=== PATIENT | female | born 1970 | race African-American/Black ===

== ENCOUNTER 2018-03-20 07:30 | Inpatient (IN) | payer OTHER ==
[~2018-03-20] VITALS: Ht 172.7 cm; Wt 122.0 kg
[2018-03-20] VITALS (12 sets, daily range): BP systolic 116–161; BP diastolic 54–90
[~2018-03-20 07:30] MED LIST: ACYCLOVIR400 MG ORAL; GABAPENTIN100 MG ORAL; OMEPRAZOLE40 M1 ORAL; ONE DAILY FOR1 EACH ORAL; POLY-IRON150 MG PO; VITAMIN B12-FO1 EAC1 PO; VITAMIN C500 M1 ORAL; VITAMIN D22000 UNIT PO; VITAMIN D400 INTLU ORAL
[2018-03-20] MEDS ORDERED: LR 1000ml 1,000 ML IVLG SCH (09:20)
--- NOTE | 2018-03-20 09:23 | Anethesia Preoperative Eval ---
Anesthesia Pre-op PMH/ROS General Date of Evaluation: Mar 20, 2018 Time of Evaluation: 10:04 Anesthesiologist: Yanci ASA Score: ASA 3 Mallampati Score Class I : Soft palate, uvula, fauces, pillars visible Class II: Soft palate, uvula, fauces visible Class III: Soft palate, base of uvula visible Class IV: Only hard plate visible Mallampati Classification: Class II Surgeon: Elías Diagnosis: Neck Pain Surgical Procedure: C4-5, C5-6 ADR Anesthesia History: none Family History: no anesthesia problems Allergies: Coded Allergies: SULFA (SULFONAMIDE ANTIBIOTICS) (Verified Allergy, Unknown, 03/19/18) Medications: see eMAR Past Medical History Cardiovascular: Reports: HTN Gastrointestinal/Genitourinary: Reports: GERD Neurologic/Psychiatric: Reports: depression/anxiety Other: obesity - Morbid BMI 44 Anesthesia Pre-op Phys. Exam Physician Exam Last Vital Signs Date Time Temp Pulse Resp B/P (MAP) Pulse Ox O2 Delivery O2 Flow Rate FiO2 03/20/18 09:13 98.7 70 18 149/90 (109) 98 98.7 Constitutional: NAD Neurologic: CN 2-12 intact Cardiovascular: RRR Respiratory: CTA Gastrointestinal: S/NT/ND Airway Exam Mallampati Score: Class II MO: full ROM: limited Teeth: intact Anesthesia Pre-op A/P Labs Urine Test Test 03/20/18 08:30 Urine HCG, Qualitative Negative (NEGATIVE) Risk Assessment & Plan Assessment: ASA 3 Plan: GA, SED, GlideScope Go Status Change Before Surgery: No Pre-Antibiotics Dru Grams Ancef IV Given Within 1 Hr of Incision: Yes Time Given: 10:21 Antwan Pete MD Mar 20, 2018 09:23
[2018-03-20] MEDS ORDERED: Meperidine 50mg/ml Inj(FOR RIGORS ONLY) IVP PRN (09:30)
[2018-03-20] MEDS ORDERED: HYDROcodone/Acetamin 7.5/325 tab ORAL PRN (09:30)
[2018-03-20] MEDS ORDERED: Midazolam 2mg/2ml Inj IVP PRN (09:30)
[2018-03-20] MEDS ORDERED: DiphenhydrAMINE 50mg/ml Inj IVP PRN (09:30)
[2018-03-20] MEDS ORDERED: oxyCODONE HCL/Acetaminophen 5/325mg ORAL PRN (09:30)
[2018-03-20] MEDS ORDERED: Acetaminophen (Non formulary) 100 ML IV ONE (09:30)
[2018-03-20] MEDS ORDERED: Labetalol 5mg/ml 20ml vial IV PRN (09:30)
[2018-03-20] MEDS ORDERED: LORazepam Inj 2mg/ml 1ml IV PRN (09:30)
[2018-03-20] MEDS ORDERED: fentaNYL 100 mcg/2 mL IV PRN (09:30)
[2018-03-20] MEDS ORDERED: Metoclopramide 10mg/2ml Inj IVP PRN (09:30)
[2018-03-20] MEDS ORDERED: Atropine Sulfate 0.4mg/ml inj IVP PRN (09:30)
[2018-03-20] MEDS ORDERED: Hydromorphone 0.5mg/0.5ml inj IVP PRN (09:30)
[2018-03-20] MEDS ORDERED: Norco 5mg/325mg tab ORAL PRN ×2 (09:30→16:00)
[2018-03-20] MEDS ORDERED: Thrombin 5000 units spray kit TOPIC ONE (09:55)
[2018-03-20] MEDS ORDERED: Thrombin 5000 units TOPIC ONE ×2 (09:56→11:56)
[2018-03-20] MEDS ORDERED: Gelfoam Absorbable 1gm powder pkt TOPIC ONE (09:56)
[2018-03-20] MEDS ORDERED: Gelfoam Size TOPIC ONE (09:56)
[2018-03-20] MEDS ORDERED: Bacitracin 50000 Units Vial ONE (09:56)
[2018-03-20] MEDS ORDERED: Sterile Water Irrig 1000ml IRRIG ONE (10:00)
[2018-03-20] MEDS ORDERED: Neostigmine 1mg/ml 10ml Inj ONE (10:00)
[2018-03-20] MEDS ORDERED: Propofol 1,000mg/ 100ml btl IV ONE (10:00)
[2018-03-20] MEDS ORDERED: LR 1000ml ONE (10:00)
[2018-03-20] MEDS ORDERED: NS Irrig 1000ml ONE (10:00)
[2018-03-20] MEDS ORDERED: Zemuron 50mg/5ml Inj IV ONE ×2 (10:00→10:01)
--- NOTE | 2018-03-20 10:00 | Pre-Procedure Note/Attestation ---
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 Attestation I attest that I discussed the nature of the procedure; its benefits; risks and complications; and alternatives (and the risks and benefits of such alternatives ), prior to the procedure, with the patient (or the patient's legal auto claim representative). I attest that, if there was a reasonable possibility of needing a blood transfusion, the patient (or the patient's legal auto claim representative) was given the [facility] standardized written summary, pursuant to the Filippo Mary Lou Blood Safety Act ([place] Health and Safety Code # 1645, as amended). I attest that I re-evaluated the patient just prior to the surgery and that there has been no change in the patient's H&P, except as documented below:no changes Jorge Mckinley MD Mar 20, 2018 10:00
--- NOTE | 2018-03-20 10:02 | Brief Operative Note ---
Immediate Post Operative Note Operative Note Pre-op Diagnosis: stenosis and aggravation C4/5 and C5/6. Procedure: ADR C4/5 and C5/6 Post-op Diagnosis: same Post-op Diagnosis: same as pre-op Findings: consistent w/pre-op dx studies Surgeon: levy Runstitching Machine Operator: randell Anesthesiologist: vladimir Anesthesia: general Specimen: yes Condition: stable Fluids: per anesthesia Estimated Blood Loss: volume Implant(s) used?: Yes Jorge Mckinley MD Mar 20, 2018 10:02
[2018-03-20] MEDS ORDERED: Lidocaine 1% MPF 10mg/ml 5ml ONE (10:07)
[2018-03-20] MEDS ORDERED: Sodium Chloride 10ml vial INJ ONE (10:07)
[2018-03-20] MEDS ORDERED: Dexamethasone 4mg/ml vial ONE (10:11)
[2018-03-20] MEDS ORDERED: fentaNYL 100 mcg/2 mL IV ONE ×3 (10:15→12:42)
--- NOTE | 2018-03-20 11:27 | Immediate Post-Op Evaluation ---
Immediate Post-Op Evalulation Immediate Post-Op Evalulation Procedure: C4-5, C5-6 ADR Date of Evaluation: Mar 20, 2018 Time of Evaluation: 14:15 IV Fluids: 1400 LR Blood Products: 0 Estimated Blood Loss: 50 Urinary Output: 450 Blood Pressure Systolic: 116 Blood Pressure Diastolic: 75 Pulse Rate: 77 Respiratory Rate: 16 O2 Sat by Pulse Oximetry: 100 Pain Score (1-10): 3 Nausea: No Vomiting: No Complications 0 Patient Status: awake, reacts, patent, extubated, none Hydration Status: adequate Dru Grams Ancef IV Given Within 1 Hr of Incision: Yes Time Given: 10:21 Antwan Pete MD Mar 20, 2018 11:27
[2018-03-20] MEDS ORDERED: Lidocaine 1% Plain 30 ml INJ ONE (11:53)
[2018-03-20] MEDS ORDERED: NS Irrig 1000ml IRRIG ONE (11:55)
[2018-03-20] MEDS ORDERED: Glycopyrrolate 0.2mg/ml 1ml Vial ONE (13:38)
[2018-03-20] MEDS: Hydromorphone 0.5mg/0.5ml inj IVP PRN ×2 (17:10→21:16)
--- NOTE | 2018-03-20 17:14 | General Progress Note ---
Assessment/Plan Assessment/Plan stenosis and aggravation C4/5 and C5/6. ADR C4/5 and C5/6 PLAN 1. incentive spirometry 2. SCD 3. PT evaluation and therapy 4. Hydration 5. Pain management 6. discharge once stable with outpatient follow up Subjective Allergies: Coded Allergies: SULFA (SULFONAMIDE ANTIBIOTICS) (Verified Allergy, Unknown, 03/19/18) Subjective post op Objective Last 24 Hour Vital Signs Date Time Temp Pulse Resp B/P (MAP) Pulse Ox O2 Delivery O2 Flow Rate FiO2 03/20/18 16:00 98.0 55 20 127/70 (89) 100 98.0 03/20/18 15:30 98.1 55 20 126/65 (85) 98 98.1 03/20/18 15:00 97.8 51 17 140/58 100 Nasal Cannula 3 97.8 03/20/18 14:50 52 16 132/54 99 Nasal Cannula 3 03/20/18 14:45 54 18 128/56 99 Nasal Cannula 3 03/20/18 14:35 59 22 129/63 99 Nasal Cannula 3 03/20/18 14:25 65 17 125/66 99 Nasal Cannula 3 03/20/18 14:15 58 17 128/67 100 Simple Mask 6 03/20/18 14:10 82 18 121/75 100 Simple Mask 6 03/20/18 14:05 77 16 100 03/20/18 14:04 98.6 82 12 116/75 99 Simple Mask 6 98.6 03/20/18 09:28 Room Air 03/20/18 09:13 98.7 70 18 149/90 (109) 98 98.7 Laboratory Tests 03/20/18 08:30: Urine HCG, Qualitative Negative Height (Feet): 5 Height (Inches): 8.00 Weight (Pounds): 269 Objective WDWN NAD clear breath sounds bilaterally without rhonchi or wheeze [id number] without MRG NABS nontender no HSM no CCE nonfocal Demarcus Aguilar MD Mar 20, 2018 17:14
[2018-03-20] MEDS: Docusate 100mg cap ORAL SCH (18:00)
[2018-03-20] MEDS: ceFAZolin 1gm/50ml Premix 50 ML IV SCH (18:21)
[2018-03-20] MEDS: D5 1/2NS w/KCl 20mEq 1,000 ML IV SCH (18:21)
[2018-03-20] MEDS ORDERED: ceFAZolin 1gm/50ml Premix 50 ML IV SCH (20:00)
[2018-03-21] VITALS: BP 154/80
[2018-03-21] MEDS: D5 1/2NS w/KCl 20mEq 1,000 ML IV SCH ×3 (01:06→17:54)
[2018-03-21] MEDS: ceFAZolin 1gm/50ml Premix 50 ML IV SCH ×3 (01:07→17:55)
[2018-03-21 04:00] VITALS: BP 158/81
[2018-03-21] MEDS: Hydromorphone 0.5mg/0.5ml inj IVP PRN ×4 (05:26→20:35)
[2018-03-21 07:16] LABS: ANION GAP 7 mmol/L (5-15); BLOOD UREA NITROGEN 11 mg/dL (7-18); CALCIUM 8.3 MG/DL (8.5-10.1); CARBON DIOXIDE 26 MMOL/L (21-32); CHLORIDE 104 MMOL/L (98-107); POTASSIUM 4.1 MMOL/L (3.5-5.1); SODIUM 137 MMOL/L (136-145)
[2018-03-21 08:00] VITALS: BP 143/71
--- NOTE | 2018-03-21 08:28 | General Progress Note ---
Assessment/Plan Assessment/Plan stenosis and aggravation C4/5 and C5/6. ADR C4/5 and C5/6 PLAN 1. incentive spirometry 2. SCD 3. PT evaluation and therapy 4. Hydration 5. Pain management 6. discharge in am if stable Subjective Allergies: Coded Allergies: SULFA (SULFONAMIDE ANTIBIOTICS) (Verified Allergy, Unknown, 03/19/18) Subjective post op some pain Objective Last 24 Hour Vital Signs Date Time Temp Pulse Resp B/P (MAP) Pulse Ox O2 Delivery O2 Flow Rate FiO2 03/21/18 08:00 98.1 62 20 143/71 (95) 98 98.1 03/21/18 04:00 98.0 63 18 158/81 (106) 95 98.0 03/21/18 00:00 98.1 61 17 154/80 (104) 96 98.1 03/20/18 21:00 Room Air 03/20/18 20:00 98.1 59 18 155/82 (106) 94 98.1 03/20/18 16:00 98.0 55 20 127/70 (89) 100 98.0 03/20/18 15:30 98.1 55 20 126/65 (85) 98 98.1 03/20/18 15:00 97.8 51 17 140/58 100 Nasal Cannula 3 97.8 03/20/18 14:50 52 16 132/54 99 Nasal Cannula 3 03/20/18 14:45 54 18 128/56 99 Nasal Cannula 3 03/20/18 14:35 59 22 129/63 99 Nasal Cannula 3 03/20/18 14:25 65 17 125/66 99 Nasal Cannula 3 03/20/18 14:15 58 17 128/67 100 Simple Mask 6 03/20/18 14:10 82 18 121/75 100 Simple Mask 6 03/20/18 14:05 77 16 100 03/20/18 14:04 98.6 82 12 116/75 99 Simple Mask 6 98.6 03/20/18 09:28 Room Air 03/20/18 09:13 98.7 70 18 149/90 (109) 98 98.7 Intake and Output 03/20/18 03/21/18 19:00 07:00 Intake Total 2285 ml 1355 ml Output Total 500 ml Balance 1785 ml 1355 ml Intake Oral 285 ml 480 ml IV Total 2000 ml 875 ml Output Urine Total 450 ml Estimated Blood Loss 50 ml # Voids 1 2 Laboratory Tests 03/20/18 08:30: Urine HCG, Qualitative Negative 03/21/18 05:59: Sodium Level 137, Potassium Level 4.1, Chloride Level 104, Carbon Dioxide Level 26, Anion Gap 7, Blood Urea Nitrogen 11, Creatinine 1.0, Estimat Glomerular Filtration Rate > 60, Glucose Level 137H, Calcium Level 8.3L Height (Feet): 5 Height (Inches): 8.00 Weight (Pounds): 269 Objective WDWN NAD clear breath sounds bilaterally without rhonchi or wheeze [id number] without MRG NABS nontender no HSM no CCE nonfocal Demarcus Aguilar MD Mar 21, 2018 08:28
[2018-03-21] MEDS: Docusate 100mg cap ORAL SCH ×2 (09:23→17:54)
[2018-03-21 12:00] VITALS: BP 142/73
--- NOTE | 2018-03-21 12:29 | 48 Hour Post Anesthesia Eval ---
Post Anesthesia Evaluation Procedure: C4-5, C5-6 ADR Date of Evaluation: Mar 21, 2018 Time of Evaluation: 12:28 Blood Pressure Systolic: 148 0: 76 Pulse Rate: 68 Respiratory Rate: 20 Temperature (Fahrenheit): 97.6 O2 Sat by Pulse Oximetry: 98 Airway: patent Nausea: No Vomiting: No Pain Intensity: 3 Hydration Status: adequate Cardiopulmonary Status: stable Mental Status/LOC: patient returned to baseline Follow-up Care/Observations: n/a Post-Anesthesia Complications: none Follow-up care needed: N/A Cr Castañeda MD Mar 21, 2018 12:29
[2018-03-21 16:00] VITALS: BP 130/72
[2018-03-21 20:00] VITALS: BP 149/80
[2018-03-22] VITALS: BP 169/82
[2018-03-22] MEDS: Hydromorphone 0.5mg/0.5ml inj IVP PRN ×3 (00:37→09:33)
[2018-03-22] MEDS: D5 1/2NS w/KCl 20mEq 1,000 ML IV SCH ×2 (00:38→08:59)
[2018-03-22] MEDS: ceFAZolin 1gm/50ml Premix 50 ML IV SCH ×2 (02:00→11:01)
[2018-03-22 04:00] VITALS: BP 143/79
[2018-03-22 08:20] VITALS: BP 134/79
[2018-03-22] MEDS: Docusate 100mg cap ORAL SCH (08:58)
--- NOTE | 2018-03-22 10:08 | General Progress Note ---
Assessment/Plan Assessment/Plan stenosis and aggravation C4/5 and C5/6. ADR C4/5 and C5/6 PLAN 1. incentive spirometry 2. SCD 3. PT evaluation and therapy 4. Hydration 5. Pain management 6. discharge today Subjective Allergies: Coded Allergies: SULFA (SULFONAMIDE ANTIBIOTICS) (Verified Allergy, Unknown, 03/19/18) Subjective post op some pain but improved eating Objective Last 24 Hour Vital Signs Date Time Temp Pulse Resp B/P (MAP) Pulse Ox O2 Delivery O2 Flow Rate FiO2 03/22/18 08:20 98.7 71 18 134/79 (97) 97 98.7 03/22/18 04:00 99.1 64 16 143/79 (100) 92 99.1 03/22/18 00:00 100.4 75 15 169/82 (111) 100.4 03/21/18 20:00 98.8 94 18 149/80 (103) 98.8 03/21/18 20:00 Room Air 03/21/18 16:00 99.0 70 19 130/72 (91) 96 99.0 03/21/18 12:29 207.7 68 20 98 03/21/18 12:00 98.5 60 21 142/73 (96) 97 98.5 Intake and Output 03/21/18 03/22/18 19:00 07:00 Intake Total 365 ml 2147.5 ml Balance 365 ml 2147.5 ml Intake Oral 240 ml 480 ml IV Total 125 ml 1667.5 ml # Voids 1 2 Height (Feet): 5 Height (Inches): 8.00 Weight (Pounds): 269 Objective WDWN NAD clear breath sounds bilaterally without rhonchi or wheeze [id number] without MRG NABS nontender no HSM no CCE nonfocal Demarcus Aguilar MD Mar 22, 2018 10:08
[2018-03-22 12:00] VITALS: BP 142/72
[2018-03-22] MEDS ORDERED: NORCO 5-325 TA1 EACH ORAL (13:56)
--- NOTE | 2018-03-24 07:58 | Discharge Summary ---
Discharge Summary Hospital Course Date of Admission Mar 20, 2018 at 08:14 Date of Discharge Mar 22, 2018 at 15:40 Admitting Diagnosis stenosis and aggravation C4-5 and C5-6. Reason for Hospitalization: elective surgery HPI Keila Willis is a 47 year old female who was admitted on Mar 20, 2018 at 08: 14 for s tenosis and aggravation C4-5 and C5-6. Patient was admitted for elective surgery. Consultations dr Aguilar Procedures s/p ENEDINA C4-5, C5-6 on 03/20/[address] Mckinley [facility] Course s/p surgery course of recovery uneventful initially IV fluids s/p perioperative abx neurovascular status intact pain management addressed , pain controlled incision clean, dry and intact ambulated freely with physical therapist ; spine and fall precautions maintained tolerated soft diet Chloraseptic [place] as needed for comfort voided freely bowel regimen instituted DVT prophylaxis with SCD incentive spirometry encouraged while in the bed cervical collar on discharge instructions provided importance of wearing cervical collar as tolerated by surgeon was stressed follow up with surgeon as outpatient as directed by surgeon FINAL DIAGNOSES stenosis and aggravation C4/5 and C5/6. s/p ADR C4-5 and C5-6 Discharge Medications Continued Medications: Ascorbic Acid* (Vitamin C*) 500 Mg Tablet 500 MG ORAL DAILY, #30 TAB 0 Refills (This prescription has been renewed) Gabapentin* (Gabapentin*) 100 Mg Capsule 100 MG ORAL BEDTIME, CAP (This prescription has been renewed) Hydrocodone Bit/Acetaminophen 5-325* ([place] 5-325*) 1 Each Tablet 1 TAB ORAL Q4H PRN for For Pain, TAB 0 Refills (This prescription has been renewed) Discharge Condition Upon Discharge: stable Discharge Disposition Patient was discharged to Home () Discharge Instructions Discharge Instructions Special Instructions I have been assigned to complete a D/C Summary on this account. I was not involved in the patient management Rosaline Ortega NP Mar 24, 2018 07:58
--- NOTE | 2018-03-25 06:15 | Operative Note - Dictated ---
DATE OF OPERATION: 03/20/2018 PREOPERATIVE DIAGNOSES: 1. 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 2. Traumatic spondyloarthropathy. POSTOPERATIVE DIAGNOSES: 1. 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 2. Traumatic spondyloarthropathy. PROCEDURE PERFORMED: 1. Anterior cervical diskectomy, C4-C5 and C5-C6. 2. Artificial disk replacement, C4-C5 and C5-C6. 3. Use of intraoperative microscope. 4. Interpretation of intraoperative SSEP transcutaneous motor MEPs and EMGs. 5. Modifier 22 applied, as the patient has significantly high BMI. SURGEON: Jorge Mckinley M.D. DOCUMENTATION BILLING CLERK: Tiburcio Saravia ANESTHESIOLOGIST: Antwan Pete M.D. ANESTHESIA: General endotracheal intubation. INTRAOPERATIVE FINDINGS: SSEPs at baseline in the upper and lower extremities were repeating and reproducible. Closing upper extremity SSEP amplitude increased by 20% and lower extremities remain closing. Baselines pre and post positioning did not change. EMG was quiet throughout the decompression instrumentation. IMPLANTS USED: Artificial disk replacement from [employer] with 15 mm x 17 mm x 5 mm disc replacement at C5-C6 and a 16 mm x 15 mm x 5 mm at C4-C5. Good fixation was noted. Intraoperative radiographs demonstrate good positioning of the cervical spine implants . Significant stenosis was noted at both levels, worse at C5-C6. INDICATIONS FOR PROCEDURE: This is a pleasant female, 47-year-old with significant predominantly low back injury; however, there was also a cervical myelopathic finding that was posttraumatic. The patient had a spinal cord lesion noted with signal change within spinal cord. was noted. The patient failed amount of conservative treatment for the lower extremity; however, there was progression of the upper extremity such as tingling and uncoordinated hand function per patient's report as well as some gait disturbance. The patient was indicated for surgery. No guarantees of outcome were given. Preoperative medical clearance was provided for optimization and subsequently, the patient was taken to the operating room. DESCRIPTION OF PROCEDURE: Once the patient was positively identified in the holding area, she was taken to the operating room, intubated by the anesthesiologist after appropriate lines were inserted. Subsequently, the markings were made on the cervical spine after appropriate positioning with the cervical spine exposed. Preextension, prepositioning baselines were obtained repeated close positioning, which demonstrated no changes. Subsequently, the patient's arms were tucked in position with a cervical spine gentle extension. neck. Subsequently, approach was undertaken after localizing x-ray was taken. The skin was marked and the neck was prepped and draped in usual sterile fashion. fashion. . Subsequently, the approach was undertaken inline with the skin crease. The cervical fascia was identified, bluntly dissected with Metzenbaum scissors. The carotid pulsation was lateral, all traversing bleeders were cauterized and divided. The prevertebral fascia was identified and subsequently the C4-C5 and C5 levels were exposed and confirmed on the radiographic images. The longus coli was elevated. Self-retaining retractors were brought into the field and initial single Hugo pin was placed as a midline with visual inspection as possible. Localizing x-ray confirmed the level and the anteroposterior view. From there, the central position of the implant was to be judged. Once the Hugo pins were placed, the C4-C5 level and C5-C6 level were decompressed significant pressure over the nerve roots. This was most notable at C5-C6. Spinal cord was decompressed, resected. Foraminotomy was generously performed and the dorsal contour of the vertebral body was also thinned with the drill. Care was taken not to remove excessive bone to prevent subsidence. The wound was copiously irrigated and subsequently a trial was placed and appropriately sized implant was placed at C5-C6, which was a 15 mm deep, 17 mm wide x 5 mm height ADR disk and at C4-C5, a 15 mm wide, 15 mm deep, and 5 mm height ADR disk was placed. Wound was copiously irrigated after orthogonal views confirmed the levels. Hugo pins were removed. Bone wax was used. There was no excessive bleeding noted. The was assessed for any swelling, any injury, there was none noted. The was reapproximated and the skin reapproximated gently. COMPLICATIONS: None. DISPOSITION: To recovery in stable condition. Jorge Mckinley M.D. DR: PASQUALE JOB#: [id number] CC: WILL
== END 2018-03-22 15:40 | DRG 518 ==
LOC: SDSOVERFLO 08:14 → 3E 14:54
PROC: 0RR30JZ Replacement of Cervical Vertebral Disc with Synthetic Substitute, Open Approach (ICD-10-PCS; principal; 2018-03-20 09:30)
PROC: 0RT30ZZ Resection of Cervical Vertebral Disc, Open Approach (ICD-10-PCS; principal; 2018-03-20 09:30)
DX: M48.02 Spinal stenosis, cervical region (principal); M46.82 Other specified inflammatory spondylopathies, cervical region
CPT/HCPCS: 36415; 72040; 76001; 80048; 81025; 86850; 86900; 86901; 87081; 94003; 94150; J2405; J2710

== ENCOUNTER 2018-03-24 02:56 | Emergency (ER) | payer OTHER ==
[~2018-03-24] VITALS: Ht 172.7 cm; Wt 122.0 kg
[~2018-03-24 02:56] MED LIST changes: +NORCO 5-325 TA1 EACH ORAL
[2018-03-24 03:05] VITALS: BP 134/87
[2018-03-24 04:19] LABS: BASOPHILS % (AUTO) 1.5 % (0.0-2.0); EOSINOPHILS % (AUTO) 1.3 % (0.0-3.0); HEMATOCRIT 40.2 % (37.0-47.0); LYMPHOCYTES % (AUTO) 21.8 % (20.0-45.0); MEAN CORPUSCULAR VOLUME 87 FL (80-99); MONOCYTES % (AUTO) 11.7 % (1.0-10.0); NEUTROPHILS % (AUTO) 63.7 % (45.0-75.0); PLATELET COUNT 265 K/UL (150-450); RED BLOOD COUNT 4.63 M/UL (4.20-5.40); RED CELL DISTRIBUTION WIDTH 12.6 % (11.6-14.8); WHITE BLOOD COUNT 6.9 K/UL (4.8-10.8)
[2018-03-24 04:41] LABS: ANION GAP 4 mmol/L (5-15); BLOOD UREA NITROGEN 9 mg/dL (7-18); CARBON DIOXIDE 30 MMOL/L (21-32); CHLORIDE 104 MMOL/L (98-107); POTASSIUM 4.1 MMOL/L (3.5-5.1); SODIUM 138 MMOL/L (136-145)
[2018-03-24 04:45] LABS: ALANINE AMINOTRANSFERASE 20 U/L (12-78); ALBUMIN 3.2 G/DL (3.4-5.0); ALBUMIN/GLOBULIN RATIO 0.8 (1.0-2.7); ALKALINE PHOSPHATASE 70 U/L (46-116); ASPARTATE AMINO TRANSFERASE 20 U/L (15-37); BILIRUBIN,TOTAL 0.4 MG/DL (0.2-1.0)
[2018-03-24] MEDS ORDERED: Isovue-300 100ml vial INJ PRN (05:15)
[2018-03-24] MEDS ORDERED: Morphine Sulfate 4mg/ml Inj (IV USE ONLY) IVP ONE (05:30)
--- NOTE | 2018-03-24 05:38 | Emergency Room Report ---
History of Present Illness General Chief Complaint: Neck Pain Source: Patient (Andrew Oliva MD) Present Illness HPI 47-year-old female presents to ED complaining of neck pain. Patient is status post cervical disc replacement on 03/20/18. [place] here [place] [facility] [place] Patient states that since yesterday she's been experiencing difficulty swallowing and feels liquid in her throat that she is spitting up. Pain is dull, 8 out of 10, nonradiating. Denies fevers or chills. Denies any neck stiffness. No other aggravating relieving factors. Denies any other associated symptoms (Andrew Oliva MD) Allergies: Coded Allergies: SULFA (SULFONAMIDE ANTIBIOTICS) (Verified Allergy, Unknown, 03/19/18) Patient History Past Surgical History: other - neck surgery 03/20/18 Pertinent Family History: none Social History: Denies: smoking, alcohol use, drug use Last Menstrual Period: 03/20/2018 Now: No : 1 Para: 1 Immunizations: UTD Reviewed Nursing Documentation: PMH: Agreed; PSxH: Agreed (Andrew Oliva MD) Nursing Documentation-PMH Past Medical History: No Stated History Hx Cardiac Problems: No Hx Cancer: No Hx Gastrointestinal Problems: Yes Hx Neurological Problems: Yes Hx Vertigo: Yes (Andrew Oliva MD) Review of Systems All Other Systems: negative except mentioned in HPI (Andrew Oliva MD) Physical Exam Vital Signs Date Time Temp Pulse Resp B/P (MAP) Pulse Ox O2 Delivery O2 Flow Rate FiO2 03/24/18 03:05 98.5 78 18 134/87 96 Room Air 98.5 Sp02 EP Interpretation: reviewed, normal General Appearance: no apparent distress, alert, GCS 15, non-toxic Head: normocephalic Eyes: bilateral eye normal inspection, bilateral eye PERRL ENT: hearing grossly normal, normal pharynx, no angioedema, normal voice Neck: full range of motion, supple, no meningismus, no bony tend, supple/symm/ no masses Respiratory: chest non-tender, lungs clear, normal breath sounds, speaking full sentences Cardiovascular #1: normal inspection Gastrointestinal: normal inspection Rectal: deferred Genitourinary: no CVA tenderness Musculoskeletal: normal inspection Neurologic: alert, oriented x3, responsive, motor strength/tone normal, sensory intact, speech normal Psychiatric: normal inspection Skin: normal inspection Lymphatic: normal inspection (Andrew Oliva MD) Medical Decision Making Diagnostic Impression: Primary Impression: Cervical radiculopathy Additional Impression: Seroma Labs Test 03/24/18 04:25 White Blood Count 6.9 K/UL (4.8-10.8) Red Blood Count 4.63 M/UL (4.20-5.40) Hemoglobin 13.0 G/DL (12.0-16.0) Hematocrit 40.2 % (37.0-47.0) Mean Corpuscular Volume 87 FL (80-99) Mean Corpuscular Hemoglobin 28.1 PG (27.0-31.0) Mean Corpuscular Hemoglobin Concent 32.4 G/DL (32.0-36.0) Red Cell Distribution Width 12.6 % (11.6-14.8) Platelet Count 265 K/UL (150-450) Mean Platelet Volume 6.7 FL (6.5-10.1) Neutrophils (%) (Auto) 63.7 % (45.0-75.0) Lymphocytes (%) (Auto) 21.8 % (20.0-45.0) Monocytes (%) (Auto) 11.7 % (1.0-10.0) Eosinophils (%) (Auto) 1.3 % (0.0-3.0) Basophils (%) (Auto) 1.5 % (0.0-2.0) Prothrombin Time 11.0 SEC (9.30-11.50) Prothromb Time International Ratio 1.0 (0.9-1.1) Activated Partial Thromboplast Time 28 SEC (23-33) Sodium Level 138 MMOL/L (136-145) Potassium Level 4.1 MMOL/L (3.5-5.1) Chloride Level 104 MMOL/L (98-107) Carbon Dioxide Level 30 MMOL/L (21-32) Anion Gap 4 mmol/L (5-15) Blood Urea Nitrogen 9 mg/dL (7-18) Creatinine 1.0 MG/DL (0.55-1.30) Estimat Glomerular Filtration Rate > 60 mL/min (>60) Glucose Level 102 MG/DL (74-106) Calcium Level 9.0 MG/DL (8.5-10.1) Total Bilirubin 0.4 MG/DL (0.2-1.0) Aspartate Amino Transf (AST/SGOT) 20 U/L (15-37) Alanine Aminotransferase (ALT/SGPT) 20 U/L (12-78) Alkaline Phosphatase 70 U/L (46-116) Total Protein 7.3 G/DL (6.4-8.2) Albumin 3.2 G/DL (3.4-5.0) Globulin 4.1 g/dL Albumin/Globulin Ratio 0.8 (1.0-2.7) Human Chorionic Gonadotropin, Qual Negative (NEGATIVE) (Andrew Oliva MD) ER Course Patient was discussed with Dr. Mckinley. The patient was noted to have increased expectorated fluid with supine position. The patient stated that she was having some difficulty with swallowing which had Dr. Mckinley as stated was expected postoperatively. . Patient was noted to have fluid collection 6 x 0.9 cm the noted on CT imaging. Dr. Mckinley states that this is normal given the patient's surgery. Esophagram was ordered to rule out any perforation. Esophagram read by radiology showed no evident perforation. The patient will be discharged home.The patient is advised to follow up with Dr. Mckinley. The patient was given prescription for Medrol Dosepak. patient is advised to return if any worsening condition or if any changes in status that are concerning. This report is dictated with [employer] landing worker software which may occasionally lead to discrepancies related to use of this software. (Nick Duncan MD) Last Vital Signs Date Time Temp Pulse Resp B/P (MAP) Pulse Ox O2 Delivery O2 Flow Rate FiO2 03/24/18 03:05 98.3 89 18 96 Room Air 98.2 03/24/18 03:05 134/87 (Andrew Oliva MD) Status: improved (Nick Duncan MD) Disposition: HOME, SELF-CARE Condition: Stable Scripts Methylprednisolone (MEDROL) 4 Mg Tab.ds.pk 4 MG PO DAILY, #1 PACK Prov: Nick Duncan MD 03/24/18 Omeprazole (OMEPRAZOLE) 20 Mg Capsule.dr 20 MG ORAL DAILY, #14 CAP Prov: Nick Duncan MD 03/24/18 Referrals: Demarcus Aguilar MD (PCP) Andrew Oliva MD Mar 24, 2018 05:38 Nick Duncan MD Mar 24, 2018 08:09
[2018-03-24 06:11] VITALS: BP 141/80
[2018-03-24 08:30] VITALS: BP 143/5
--- NOTE | 2018-03-24 09:25 | Diagnostic Imaging Report ---
Indication: Neck pain, problems swallowing. Recent cervical spine surgery Technique: CT of the spine was performed utilizing automated exposure control following administration of intravenous contrast material. Axial, sagittal and coronal images were generated. CT dose: Total DLP 622.62 mGycm; CTDI vol 18.66 mGy Comparison: No prior CT available for comparison. Correlation made to images from thoracic spine surgery 03/20/2018. Findings: Evaluation is limited by streak artifact from surgical hardware. Within these limitations the following observations are made: The patient is status post artificial disc replacement at C4-C5 and C5-C6. Small foci of gas in the tissues of the neck is thought to be postoperative in etiology given recent surgery. There is a prevertebral fluid collection that measures approximately 2.6 cm transverse by 0.8 cm in AP thickness and spans approximately 4.7 cm. This may represent postoperative hematoma, seroma or abscess. Correlate clinically. There is no evidence of acute fracture. Imaged lung apices unremarkable. Imaged thyroid and vascular structures unremarkable. Mild mucosal thickening in the left sphenoid sinus. Remainder of the imaged paranasal sinuses and mastoid air cells are clear. There are small cervical lymph nodes, none pathologically enlarged by imaging size criteria. These are likely reactive in etiology. IMPRESSION: Post surgical changes related to disc replacement at C4-C5 and C5-C6. Adjacent prevertebral soft tissue swelling with fluid collection which may represent postoperative seroma, hematoma or abscess. Correlate clinically. Amount of gas in the soft tissues thought to be related to known recent surgical intervention. This corresponds with the statrad preliminary report. The CT scanner at [facility] is accredited by the [employer] and the scans are performed using protocols designed to limit radiation exposure to as low as reasonably achievable to attain images of sufficient resolution adequate for diagnostic evaluation.
[2018-03-24] MEDS ORDERED: CEPHALEXIN500 MG ORAL (11:00)
[2018-03-24] MEDS ORDERED: MEDROL4 M1 PO (11:11)
[2018-03-24] MEDS ORDERED: OMEPRAZOLE20 M2 ORAL (11:11)
[2018-03-24 11:21] VITALS: BP 150/99
--- NOTE | 2018-03-24 11:25 | Diagnostic Imaging Report ---
Indication: Dysphasia status post cervical spinal surgery Technique: Radiographic and fluoroscopic esophagram was performed. Water-soluble low osmolality oral contrast utilized ([id number]-300). Total fluoroscopy time 2.2 minutes. Total fluoroscopy dose 76 cGycm2. Comparison: Concurrent CT of the cervical spine. Findings: Independent Insurance Adjuster radiograph demonstrates postsurgical changes of the cervical spine with artificial disks at C4-C5 and C5-C6, consistent with CT of the cervical spine. No focal airspace opacities identified. Radiographic and fluoroscopic images were obtained after administration of water-soluble contrast. The swallowing mechanism is normal. No impediment to swelling or abnormal esophageal contractions are identified. No intraluminal filling defect is identified. No significant external compression is identified. No extraluminal extravasation of ingested oral contrast is identified. No extra luminal extravasation is noted on delayed spot fluoroscopic images. No gastroesophageal reflux is identified. IMPRESSION: * Normal swallowing. No abnormal esophageal contractions. * No extraluminal extravasation of ingested control contrast. * Evidence of prior cervical spine surgery.
--- NOTE | 2018-03-24 12:06 | Diagnostic Imaging Report ---
Indication: Shortness of breath Technique: XRAY Chest 1v Comparison: None Findings: Heart size and mediastinal contours are within normal limits given technique. Mild linear atelectasis in the right lower lung. Otherwise, There is no focal consolidation, pneumothorax or pleural effusion. Osseous structures demonstrate no acute abnormality. Oral contrast is noted in the stomach from administration during prior esophagram. Impression: Very mild linear subsegmental atelectasis in the right lower lung. Otherwise no focal airspace consolidation, pleural effusion or pneumothorax.
== END 2018-03-24 11:27 | disposition home or self-care (01) ==
LOC: EMR 03:17
DX: M54.12 Radiculopathy, cervical region (principal); M96.842 Postprocedural seroma of a musculoskeletal structure following a musculoskeletal system procedure; Z88.2 Allergy status to sulfonamides; Z87.19 Personal history of other diseases of the digestive system
CPT/HCPCS: 36415; 71045; 72126; 74220; 80053; 84703; 85025; 85610; 85730; 86850; 86900; 86901; 96361; 96374; 99284; J2270; Q9967

== ENCOUNTER 2018-06-26 08:45 | Inpatient (IN) | payer OTHER ==
[2018-06-26] VITALS (11 sets, daily range): BP systolic 123–161; BP diastolic 65–88
[~2018-06-26] VITALS: Ht 172.7 cm; Wt 117.9 kg
[~2018-06-26 08:45] MED LIST changes: +CEPHALEXIN500 MG ORAL; +MEDROL4 M1 PO; +OMEPRAZOLE20 M2 ORAL
[2018-06-26] MEDS ORDERED: Thrombin 5000 units spray kit TOPIC ONE (10:35)
[2018-06-26] MEDS ORDERED: Thrombin 5000 units TOPIC ONE ×2 (10:35→10:37)
[2018-06-26] MEDS ORDERED: Bacitracin 50000 Units Vial ONE (10:36)
[2018-06-26] MEDS ORDERED: Bupivacaine w/Epi 0.5% 30ml Vial INJ ONE (10:36)
[2018-06-26] MEDS ORDERED: Lidocaine 1% MPF 10mg/ml 5ml ONE (12:05)
[2018-06-26] MEDS ORDERED: Midazolam 2mg/2ml Inj ONE (12:06)
[2018-06-26] MEDS ORDERED: fentaNYL 100 mcg/2 mL IV ONE (12:06)
[2018-06-26] MEDS ORDERED: Zemuron 50mg/5ml Inj IV ONE (12:21)
[2018-06-26] MEDS ORDERED: Succinylcholine 20mg/ml 10ml vial ONE (12:22)
--- NOTE | 2018-06-26 13:15 | Anethesia Preoperative Eval ---
Anesthesia Pre-op PMH/ROS General Date of Evaluation: Jun 26, 2018 Time of Evaluation: 12:40 Anesthesiologist: Garry ASA Score: ASA 2 Mallampati Score Class I : Soft palate, uvula, fauces, pillars visible Class II: Soft palate, uvula, fauces visible Class III: Soft palate, base of uvula visible Class IV: Only hard plate visible Mallampati Classification: Class II Surgeon: Elías Diagnosis: Lumbar radiculopathy Surgical Procedure: L4-5 L5-S1 laminotomy with decompression Anesthesia History: none Family History: no anesthesia problems Allergies: Coded Allergies: SULFA (SULFONAMIDE ANTIBIOTICS) (Verified Allergy, Unknown, 03/19/18) Medications: see eMAR Patient NPO?: Yes NPO Date: Jun 25, 2018 NPO Time: 2300 Past Medical History Cardiovascular: Denies: HTN, CAD, [place], valve dz, arrhythmia, other Pulmonary: 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 Exam Physician Exam Last Vital Signs Date Time Temp Pulse Resp B/P (MAP) Pulse Ox O2 Delivery O2 Flow Rate FiO2 06/26/18 09:54 Room Air 06/26/18 09:41 98.0 62 18 129/88 (102) 100 Constitutional: NAD Neurologic: CN 2-12 intact Cardiovascular: RRR, no M/R/G Respiratory: CTA Gastrointestinal: other - obesity Airway Exam Mallampati Score: Class II MO: full Neck: stiff ROM: limited Teeth: intact Dentures: no upper, no lower Anesthesia Pre-op A/P Labs see chart Urine Test Test 06/26/18 09:05 Urine HCG, Qualitative Negative (NEGATIVE) Studies Pre-op Studies: EKG - Sinus ximena Risk Assessment & Plan Assessment: ASA 2 Plan: GA with ETT prone position Pre-Antibiotics Drug: Ancef 2gr. Given Within 1 Hr of Incision: Yes Time Given: 13:45 Cr Castañeda MD Jun 26, 2018 13:15
[2018-06-26] MEDS ORDERED: LR 1000ml ONE (14:00)
[2018-06-26] MEDS ORDERED: NS Irrig 1000ml ONE (14:00)
[2018-06-26] MEDS ORDERED: Propofol 1,000mg/ 100ml btl IV ONE (14:00)
[2018-06-26] MEDS ORDERED: Sterile Water Irrig 1000ml IRRIG ONE (14:00)
--- NOTE | 2018-06-26 14:24 | Brief Operative Note ---
Immediate Post Operative Note Operative Note Chief Complaint: radic Pre-op Diagnosis: lumbar radic L4/5 and L5/S1 stenosis Procedure: Bilateral L4/5 and L5/S1 MLD Post-op Diagnosis: Same as above Post-op Diagnosis: same as pre-op Surgeon: levy Motor Pool Clerk: randell Anesthesiologist: nick Anesthesia: general Specimen: none Complications: none Condition: stable Fluids: per anesthesia Estimated Blood Loss: minimal Drains: hemovac Implant(s) used?: No Jorge Mckinley MD Jun 26, 2018 14:24
[2018-06-26] MEDS ORDERED: HYDROmorphone 1mg/ml Carpuject IVP PRN (14:30)
[2018-06-26] MEDS ORDERED: NS Irrig 1000ml IRRIG ONE (15:02)
[2018-06-26] MEDS ORDERED: Morphine Sulfate 10mg/ml Inj ONE (15:35)
[2018-06-26] MEDS ORDERED: Sodium Chloride 10ml vial INJ ONE (15:36)
[2018-06-26] MEDS ORDERED: Ketorolac 30mg Inj ONE (15:36)
[2018-06-26] MEDS ORDERED: Glycopyrrolate 0.2mg/ml 1ml Vial ONE (15:36)
[2018-06-26] MEDS ORDERED: Neostigmine 1mg/ml 10ml Inj ONE (15:36)
[2018-06-26] MEDS ORDERED: Metoclopramide 10mg/2ml Inj IVP PRN (15:45)
[2018-06-26] MEDS ORDERED: Acetaminophen (Non formulary) 100 ML IV SCH (15:45)
[2018-06-26] MEDS ORDERED: Midazolam 2mg/2ml Inj IVP PRN (15:45)
[2018-06-26] MEDS ORDERED: LR 1000ml 1,000 ML IVLG SCH (15:45)
[2018-06-26] MEDS ORDERED: DiphenhydrAMINE 50mg/ml Inj IVP PRN (15:45)
[2018-06-26] MEDS ORDERED: Ketorolac 30mg Inj IV PRN (15:45)
[2018-06-26] MEDS ORDERED: Meperidine 50mg/ml Inj(FOR RIGORS ONLY) IV PRN (15:45)
--- NOTE | 2018-06-26 18:10 | Immediate Post-Op Evaluation ---
Immediate Post-Op Evalulation Immediate Post-Op Evalulation Procedure: Laminotomy L4-L5 L5-S1 with decomperession Date of Evaluation: Jun 26, 2018 Time of Evaluation: 18:08 IV Fluids: `1200 Blood Products: none Estimated Blood Loss: 50 Urinary Output: 250 Blood Pressure Systolic: 137 Blood Pressure Diastolic: 72 Pulse Rate: 56 Respiratory Rate: 20 O2 Sat by Pulse Oximetry: 98 Temperature (Fahrenheit): 97.6 Pain Score (1-10): 1 Nausea: No Vomiting: No Complications none Patient Status: reacts, patent, extubated, none Hydration Status: adequate Cr Castañeda MD Jun 26, 2018 18:10
[2018-06-26] MEDS: D5 1/2NS w/KCl 20mEq 1,000 ML IV SCH (22:41)
[2018-06-26] MEDS: ceFAZolin sod 1 GM in D5W 55 ML IV SCH (22:41)
[2018-06-27] VITALS: BP 148/72
--- NOTE | 2018-06-27 00:45 | Operative Note - Dictated ---
DATE OF OPERATION: 06/26/2018 PREOPERATIVE DIAGNOSES: 1. Lumbar spinal stenosis, L4-L5 and L5-S1. 2. Comorbidities including obesity, symptomatic radiculopathy. POSTOPERATIVE DIAGNOSES: 1. Lumbar spinal stenosis, L4-L5 and L5-S1. 2. Comorbidities including obesity, symptomatic radiculopathy. PROCEDURE: Hemilaminotomy, medial decompression, foraminotomy, bilateral lumbar L4-L5 and L5-S1. SURGEON: Jorge Mckinley M.D. CONSULTANT TEACHER: EMILY Sears ANESTHESIOLOGIST: Cr Castañeda M.D. ANESTHESIA: General endotracheal anesthetic. Elizalde placed. INTRAOPERATIVE FINDINGS: Significant stenosis noted. No pars defect noted. Decompression adequate. INDICATIONS FOR PROCEDURE: A pleasant female with significant spinal injury. The patient had myelopathy, which was addressed previously with an artificial disk replacement. The patient also had lumbar radiculopathy, which is being addressed today. The patient failed reasonable conservative treatment. No guarantees of outcome were given. The patient preoperatively medically cleared and optimized for surgery. DESCRIPTION OF PROCEDURE: The patient was subsequently taken to the operating room, intubated by the anesthesiologist after appropriate identification and informed consent. The patient was positioned prone on the Edilberto multi-padded table. The patient had significantly large body habitus and complexity factor applied as the patient's spine is quite deep in terms of working length of instrumentation, which increases complexity and requires complexity factor in addition. Once the patient was prepped and draped in the usual sterile fashion, antibiotics were delivered in usual customary fashion. Surgical pause was undertaken. Incision was made after Marcaine-epinephrine infiltration and subsequently the subperiosteal dissection was carried down to the L4-5 and L5-S1 level. The exposure was adequate. The longus retractors were utilized. Localizing x-ray was taken, which was again quite complicated due to large body habitus. Once the level was localized and confirmed, microscope was pulled into the view and L4-L5 level on the right side was decompressed as well as the right L5-S1 by performing laminotomy of L4 and L5, medial partial facetectomy, removal of ligamentum flavum, release of ligamentum flavum using undercutting microcurettes. No pressure was exerted with my instruments onto nerve roots. The nerve roots were gently protected and the disc was inspected. Bleeders were cauterized with bipolar. My attention was directed toward the L5-S1 level and in a similar fashion I decompressed the lateral recess and foramina and performed the foraminotomy. I mobilized the retractors to the left side and performed the left L4-L5 and L5-S1 level. Thus decompressed the L4-L5 and L5-S1. No pars defect was noted. The wound was copiously irrigated and two subfascial drains were placed on either side of the spine and the patient's fascia was reapproximated using #1 Vicryl, 2-0 Vicryl for the dermis and 3-0 Monocryl for skin. COMPLICATIONS: None. DISPOSITION: To Recovery in stable condition. Jorge Mckinley M.D. DR: TALI JOB#: [id number] CC: WILL
[2018-06-27 04:00] VITALS: BP 133/76
[2018-06-27] MEDS: ceFAZolin sod 1 GM in D5W 55 ML IV SCH ×2 (05:36→14:27)
[2018-06-27] MEDS: D5 1/2NS w/KCl 20mEq 1,000 ML IV SCH ×3 (05:36→21:11)
[2018-06-27 07:29] LABS: HEMATOCRIT 37.1 % (37.0-47.0); HEMOGLOBIN 12.5 G/DL (12.0-16.0); MEAN CORPUSCULAR VOLUME 89 FL (80-99); PLATELET COUNT 231 K/UL (150-450); RED BLOOD COUNT 4.16 M/UL (4.20-5.40); RED CELL DISTRIBUTION WIDTH 11.7 % (11.6-14.8); WHITE BLOOD COUNT 11.2 K/UL (4.8-10.8)
[2018-06-27 08:00] VITALS: BP 118/65
[2018-06-27 08:09] LABS: ANION GAP 10 mmol/L (5-15); BLOOD UREA NITROGEN 7 mg/dL (7-18); CALCIUM 9.2 MG/DL (8.5-10.1); CARBON DIOXIDE 25 MMOL/L (21-32); CHLORIDE 103 MMOL/L (98-107); CREATININE 0.8 MG/DL (0.55-1.30); POTASSIUM 3.6 MMOL/L (3.5-5.1); SODIUM 138 MMOL/L (136-145)
--- NOTE | 2018-06-27 08:44 | 48 Hour Post Anesthesia Eval ---
Post Anesthesia Evaluation Procedure: Laminotomy L4-L5 L5-S1 with decomperession Date of Evaluation: Jun 27, 2018 Time of Evaluation: 08:44 Blood Pressure Systolic: 118 0: 65 Pulse Rate: 89 Respiratory Rate: 20 Temperature (Fahrenheit): 97.6 O2 Sat by Pulse Oximetry: 100 Airway: patent Nausea: No Vomiting: No Pain Intensity: 2 Hydration Status: adequate Cardiopulmonary Status: Stable Mental Status/LOC: patient returned to baseline Follow-up Care/Observations: 0 Post-Anesthesia Complications: 0 Follow-up care needed: N/A Antwan Pete MD Jun 27, 2018 08:44
[2018-06-27] MEDS: Docusate 100mg cap ORAL SCH ×2 (09:05→18:07)
--- NOTE | 2018-06-27 10:49 | History & Physical ---
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; Denies: asthma, COPD, other Gastrointestinal/Genitourinary: Reports: GERD; Denies: CRI, ESRD, other Neurologic/Psychiatric: Reports: depression/anxiety, other - chronic pain; Denies: dementia, CVA, TIA Endocrine: Denies: DM, hypothyroidism, steroids, other HEENT: Denies: cataract (L), cataract (R), glaucoma, [place] (L), [place] (R), other Hematology/Immune: Denies: anemia, DVT, bleeding disorder, other Musculoskeletal/Integumentary: Denies: OA, RA, DJD, DDD, edema, other Other: obesity PMH Narrative: as above PSxH Narrative: ACDF, , Bariatric Sx, gastric sleeve Objective: Obese HEENT: Moist MM Chest: CTAB Heart: HS!, HS2 RRR Abdomen: Soft, NT, ND Extrem: Arei perfused, no edema PREVENTIVE MEDICINE PHYSICIAN: Intact Impression: s/p Left L5-5 Lumbar Microdiskectomy and Bilateral L5-S1 Microdiskectomy by Dr Mckinley for Lumbar radiculopathy Obesity Previous Gastric bypass GERD DAFNE Plan; Post operative care SCD'a Pain rmeds SHALLOT CLEANER meds PT Advance diet O2 PRN CPAP QHS IVF Travis Montenegro MD Jun 27, 2018 10:49
[2018-06-27] MEDS ORDERED: Tubing IV Secondary IV ONE (11:04)
[2018-06-27 12:00] VITALS: BP 125/60
--- NOTE | 2018-06-27 12:36 | Pre-Procedure Note/Attestation ---
Pre-Procedure Note/Attestation Complete Prior to Procedure Planned Procedure: bilateral - L4/5 and L5/S1 micordecompression Indications for Procedure Pre-Operative Diagnosis: lumbar radic L4/5 and L5/S1 stenosis Attestation I attest that I discussed the nature of the procedure; its benefits; risks and complications; and alternatives (and the risks and benefits of such alternatives ), prior to the procedure, with the patient (or the patient's legal procurement representative). I attest that, if there was a reasonable possibility of needing a blood transfusion, the patient (or the patient's legal procurement representative) was given the [facility] standardized written summary, pursuant to the Filippo [place] [employer] Blood Safety Act ([place] Health and Safety Code # 1645, as amended). I attest that I re-evaluated the patient just prior to the surgery and that there has been no change in the patient's H&P, except as documented below: Jorge Mckinley MD Jun 27, 2018 12:36
[2018-06-27 16:00] VITALS: BP 122/61
--- NOTE | 2018-06-27 17:13 | Orthopedic Spine Progress Note ---
Ortho Spine - Progress Note Subjective Symptoms: improved - as compared to pre-op Objective Vital Signs: Last 24 Hour Vital Signs Date Time Temp Pulse Resp B/P (MAP) Pulse Ox O2 Delivery O2 Flow Rate FiO2 06/27/18 16:00 97.9 73 19 122/61 (81) 98 06/27/18 12:00 97.5 62 20 125/60 (81) 97 06/27/18 09:00 Room Air Room Air 06/27/18 08:44 89 20 100 06/27/18 08:00 97.6 89 20 118/65 (82) 100 06/27/18 04:00 97.4 61 20 133/76 (95) 99 06/27/18 00:00 97.8 60 18 148/72 (97) 100 06/26/18 22:00 Nasal Cannula 2.0 Room Air 06/26/18 20:15 97.5 51 18 128/65 (86) 99 06/26/18 19:29 97.8 49 22 135/72 98 Nasal Cannula 3 06/26/18 19:28 49 22 135/72 98 Nasal Cannula 3 06/26/18 19:00 45 22 137/71 98 Nasal Cannula 3 06/26/18 18:45 51 22 123/67 98 Nasal Cannula 3 06/26/18 18:30 61 22 123/67 98 Nasal Cannula 3 06/26/18 18:20 80 16 126/67 98 Simple Mask 8 06/26/18 18:11 68 20 137/72 98 Simple Mask 8 06/26/18 18:10 56 20 98 06/26/18 18:06 76 20 144/85 98 Simple Mask 8 06/26/18 18:01 97.3 80 20 161/84 98 Simple Mask 8 I&O: Intake and Output 06/26/18 06/27/18 19:00 07:00 Intake Total 1200 ml 1220 ml Output Total 300 ml 850 ml Balance 900 ml 370 ml Intake Oral 360 ml IV Total 1200 ml 860 ml Output Urine Total 250 ml 850 ml Estimated Blood Loss 50 ml # Voids 1 Drains: hemovac - pulled after minimal drainage. Neuro Status: stable Assessment Post-op Diagnosis: Same as above Procedure Performed: Bilateral L4/5 and L5/S1 MLD Additional Comments: wound progressing well. Plan Plan: PT, d/c antibiotics, d/c drain, discharge plan - per Jorge Cid MD Jun 27, 2018 17:13
[2018-06-27 20:28] VITALS: BP 141/66
[2018-06-28] VITALS: BP 131/65
[2018-06-28 04:00] VITALS: BP 127/63
[2018-06-28] MEDS: D5 1/2NS w/KCl 20mEq 1,000 ML IV SCH ×3 (05:25→21:53)
[2018-06-28 08:00] VITALS: BP 134/68
[2018-06-28] MEDS: Docusate 100mg cap ORAL SCH ×2 (09:13→18:33)
[2018-06-28] MEDS ORDERED: Hydromorphone 0.5mg/0.5ml inj IVP PRN (11:30)
[2018-06-28 12:00] VITALS: BP 124/61
--- NOTE | 2018-06-28 12:04 | Pulmonology Progress Note ---
Assessment/Plan Assessment/Plan Pulmonary Progress Note Patient is a 47 year old woman s/p Left L5-5 Lumbar Microdiskectomy and Bilateral L5-S1 Microdiskectomy by Dr Mckinley for Lumbar radiculopathy Tolerated procedure well, pain controlled, has order for PT, c/o headache, Spine Surgeon informed by RN. 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; Denies: asthma, COPD, other Gastrointestinal/Genitourinary: Reports: GERD; Denies: CRI, ESRD, other Neurologic/Psychiatric: Reports: depression/anxiety, other - chronic pain; Denies: dementia, CVA, TIA Endocrine: Denies: DM, hypothyroidism, steroids, other HEENT: Denies: cataract (L), cataract (R), glaucoma, [place] (L), [place] (R), other Hematology/Immune: Denies: anemia, DVT, bleeding disorder, other Musculoskeletal/Integumentary: Denies: OA, RA, DJD, DDD, edema, other Other: obesity PMH Narrative: as above PSxH Narrative: ACDF, , Bariatric Sx, gastric sleeve Objective: Obese HEENT: Moist MM Chest: CTAB Heart: HS!, HS2 RRR Abdomen: Soft, NT, ND Extrem: Well perfused, no edema CLOCK REPAIRER: Intact, no focal signs, no seizures Impression: s/p Left L5-5 Lumbar Microdiskectomy and Bilateral L5-S1 Microdiskectomy by Dr Mckinley for Lumbar radiculopathy Obesity Previous Gastric bypass GERD DAFNE Headache Plan; Post operative care Incentive spirometer SCD'a Pain rmeds, IV Dilaudid for severe hedache ENTRY LEVEL RECEPTIONIST meds PT Advance diet O2 PRN CPAP QHS IVF Subjective ROS Limited/Unobtainable: No Neurologic: Reports: headache Allergies: Coded Allergies: SULFA (SULFONAMIDE ANTIBIOTICS) (Verified Allergy, Unknown, 03/19/18) Objective Last 24 Hour Vital Signs Date Time Temp Pulse Resp B/P (MAP) Pulse Ox O2 Delivery O2 Flow Rate FiO2 06/28/18 09:00 Room Air Room Air 06/28/18 08:00 97.9 69 18 134/68 (90) 95 06/28/18 04:42 99.4 06/28/18 04:00 101.7 82 18 127/63 (84) 99 06/28/18 00:30 18 96 21 06/28/18 00:00 98.0 72 18 131/65 (87) 100 06/27/18 22:53 78 18 Room Air 21 06/27/18 22:53 78 14 98 Facial 28 06/27/18 21:00 Room Air Room Air 06/27/18 20:28 100.0 88 18 141/66 (91) 95 06/27/18 16:00 97.9 73 19 122/61 (81) 98 Intake and Output 06/27/18 06/28/18 19:00 07:00 Intake Total 1025 ml 1365 ml Output Total 355 ml Balance 670 ml 1365 ml Intake Oral 900 ml 240 ml IV Total 125 ml 1125 ml Output Urine Total 300 ml Drainage Total 55 ml # Voids 1 4 Microbiology Date/Time Source Procedure Growth Status 06/26/18 09:15 Nasal Nares MRSA Culture - Final NO METHICILLIN RESISTANT STAPH AUREUS... Complete Current Medications Medications (Trade) Dose Ordered Sig/Maxwell Route PRN Reason Start Time Stop Time Status Last Admin Dose Admin Acetaminophen (Tylenol) 650 mg Q4H PRN ORAL headache or temp>101 06/26/18 14:30 07/26/18 14:29 06/28/18 11:15 Dextrose/ Electrolytes 1,000 ml @ 125 mls/hr Q8H IV 06/26/18 22:00 07/26/18 21:59 06/28/18 05:25 Diphenhydramine HCl (Benadryl) 25 mg Q8H PRN ORAL Itching 06/27/18 06:30 07/27/18 06:29 Docusate Sodium (Colace) 100 mg TWICE A DAY ORAL 06/27/18 09:00 07/27/18 08:59 06/28/18 09:13 Gabapentin (Neurontin) 100 mg BEDTIME ORAL 06/27/18 21:00 07/27/18 20:59 06/27/18 21:11 Hydromorphone HCl (Dilaudid) 0.5 mg Q3H PRN IVP Severe Pain (Pain Scale 7-10) 06/28/18 11:30 07/05/18 11:29 Hydromorphone HCl (Dilaudid) 0.5 mg Q4H PRN IVP Breakthrough Pain 06/28/18 11:30 07/03/18 14:29 Ondansetron HCl (Zofran) 4 mg Q8H PRN IVP Nausea & Vomiting 06/27/18 06:30 07/27/18 06:29 06/27/18 19:45 Oxycodone/ Acetaminophen (Percocet 10/325) 1 tab Q4H PRN ORAL Moderate Pain (Pain Scale 4-6) 06/26/18 18:00 07/03/18 17:59 06/28/18 06:32 Pantoprazole (Protonix) 40 mg DAILY ORAL 06/27/18 09:00 07/27/18 08:59 06/28/18 09:13 Temazepam (Restoril) 15 mg HSPRN PRN ORAL Insomnia 06/26/18 14:30 07/03/18 14:29 Travis Montenegro MD Jun 28, 2018 12:04
[2018-06-28 16:00] VITALS: BP 139/66
[2018-06-28] MEDS: Hydromorphone 0.5mg/0.5ml inj IVP PRN ×2 (16:30→23:11)
[2018-06-28] MEDS ORDERED: Vancomycin 1 GM in D5W 275 ML IVPB SCH (17:30)
[2018-06-28] MEDS ORDERED: Vancomycin 1500mg IVPB ONE (18:30)
[2018-06-28 20:00] VITALS: BP 127/69
[2018-06-28] MEDS: Piperacillin/Tazobactam 3.375 GM in D5W 110 ML IVPB SCH (20:52)
[2018-06-29] VITALS (7 sets, daily range): BP systolic 122–162; BP diastolic 74–91
[2018-06-29 02:21] LABS: APPEARANCE,URINE CLEAR; BILIRUBIN, URINE NEGATIVE (NEGATIVE); COLOR,URINE PALE YELLOW; GLUCOSE, URINE (UA) NEGATIVE (NEGATIVE); KETONES,URINE NEGATIVE (NEGATIVE); LEUKOCYTE ESTERASE ,URINE NEGATIVE (NEGATIVE); NITRITE,URINE NEGATIVE (NEGATIVE); PH,URINE 6 (4.5-8.0); PROTEIN,URINE NEGATIVE (NEGATIVE); UROBILINOGEN,URINE NORMAL MG/DL (0.0-1.0)
[2018-06-29] MEDS: Piperacillin/Tazobactam 3.375 GM in D5W 110 ML IVPB SCH ×3 (03:48→19:55)
[2018-06-29] MEDS: D5 1/2NS w/KCl 20mEq 1,000 ML IV SCH ×2 (05:47→14:00)
[2018-06-29] MEDS: Vancomycin 1250mg/D5W 250ml IVPB SCH ×2 (05:47→18:18)
[2018-06-29] MEDS: Docusate 100mg cap ORAL SCH ×2 (08:51→18:18)
--- NOTE | 2018-06-29 14:00 | Pulmonology Progress Note ---
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; Denies: asthma, COPD, other Gastrointestinal/Genitourinary: Reports: GERD; Denies: CRI, ESRD, other Neurologic/Psychiatric: Reports: depression/anxiety, other - chronic pain; Denies: dementia, CVA, TIA Endocrine: Denies: DM, hypothyroidism, steroids, other HEENT: Denies: cataract (L), cataract (R), glaucoma, [place] (L), [place] (R), other Hematology/Immune: Denies: anemia, DVT, bleeding disorder, other Musculoskeletal/Integumentary: Denies: OA, RA, DJD, DDD, edema, other Other: obesity PMH Narrative: as above PSxH Narrative: ACDF, , Bariatric Sx, gastric sleeve Objective: Obese HEENT: Moist MM Chest: CTAB Heart: HS!, HS2 RRR Abdomen: Soft, NT, ND Extrem: Well perfused, no edema ROD FILLER: Intact, no focal signs, no seizures Impression: s/p Left L5-5 Lumbar Microdiskectomy and Bilateral L5-S1 Microdiskectomy by Dr Mckinley for Lumbar radiculopathy Obesity Previous Gastric bypass GERD DAFNE Headache Plan; Post operative care Incentive spirometer Continue IV antibiotics for now Await CXR SCD'a Pain rmeds, IV Dilaudid for severe hedache STAGE [employer]GER meds PT Advance diet O2 PRN CPAP QHS IVF Subjective ROS Limited/Unobtainable: No Allergies: Coded Allergies: SULFA (SULFONAMIDE ANTIBIOTICS) (Verified Allergy, Unknown, 03/19/18) Objective Last 24 Hour Vital Signs Date Time Temp Pulse Resp B/P (MAP) Pulse Ox O2 Delivery O2 Flow Rate FiO2 06/29/18 12:00 98.2 61 20 140/74 (96) 98 06/29/18 09:00 Room Air Room Air 06/29/18 08:00 97.4 72 18 144/81 (102) 100 06/29/18 04:00 97.2 69 18 140/83 (102) 97 06/29/18 00:00 98.4 73 18 159/74 (102) 97 06/28/18 21:00 Room Air Room Air 06/28/18 20:00 99.6 89 18 127/69 (88) 97 06/28/18 19:05 101.4 06/28/18 19:02 101.4 06/28/18 18:30 101.1 06/28/18 17:00 102.0 06/28/18 16:00 101.3 87 18 139/66 (90) 99 Intake and Output 06/28/18 06/29/18 19:00 07:00 Intake Total 1025 ml 1599.17 ml Output Total 500 ml Balance 1025 ml 1099.17 ml Intake Oral 900 ml 240 ml IV Total 125 ml 1359.17 ml Output Urine Total 500 ml # Voids 2 Laboratory Tests 06/29/18 01:50: Urine Color Pale yellow, Urine Appearance Clear, Urine pH 6, Urine Specific Thompson 1.010, Urine Protein Negative, Urine Glucose (UA) Negative, Urine Ketones Negative, Urine Blood 3+H, Urine Nitrite Negative, Urine Bilirubin Negative, Urine Urobilinogen Normal, Urine Leukocyte Esterase Negative, Urine RBC 2-4H, Urine WBC 0-2, Urine Squamous Epithelial Cells ModerateH, Urine Bacteria Few Current Medications Medications (Trade) Dose Ordered Sig/Maxwell Route PRN Reason Start Time Stop Time Status Last Admin Dose Admin Acetaminophen (Tylenol) 650 mg Q4H PRN ORAL headache or temp>101 06/26/18 14:30 07/26/18 14:29 06/28/18 18:32 Dextrose/ Electrolytes 1,000 ml @ 125 mls/hr Q8H IV 06/26/18 22:00 07/26/18 21:59 06/29/18 05:47 Diphenhydramine HCl (Benadryl) 25 mg Q8H PRN ORAL Itching 06/27/18 06:30 07/27/18 06:29 Docusate Sodium (Colace) 100 mg TWICE A DAY ORAL 06/27/18 09:00 07/27/18 08:59 06/29/18 08:51 Gabapentin (Neurontin) 100 mg BEDTIME ORAL 06/27/18 21:00 07/27/18 20:59 06/28/18 20:51 Hydromorphone HCl (Dilaudid) 0.5 mg Q3H PRN IVP Severe Pain (Pain Scale 7-10) 06/28/18 11:30 07/05/18 11:29 06/28/18 23:11 Hydromorphone HCl (Dilaudid) 0.5 mg Q4H PRN IVP Breakthrough Pain 06/28/18 11:30 07/03/18 14:29 Ondansetron HCl (Zofran) 4 mg Q8H PRN IVP Nausea & Vomiting 06/27/18 06:30 07/27/18 06:29 06/27/18 19:45 Oxycodone/ Acetaminophen (Percocet 10/325) 1 tab Q4H PRN ORAL Moderate Pain (Pain Scale 4-6) 06/26/18 18:00 07/03/18 17:59 06/29/18 08:57 Pantoprazole (Protonix) 40 mg DAILY ORAL 06/27/18 09:00 07/27/18 08:59 06/29/18 08:51 Piperacillin Sod/ Tazobactam Sod 3.375 gm/Dextrose 110 ml @ 27.5 mls/hr Q8H IVPB 06/28/18 20:00 07/05/18 19:59 06/29/18 13:01 Temazepam (Restoril) 15 mg HSPRN PRN ORAL Insomnia 06/26/18 14:30 07/03/18 14:29 Vancomycin HCl (Vanco rx to dose) 1 ea DAILY PRN MISC PER PHARMACY 06/28/18 18:00 07/28/18 17:59 Vancomycin HCl/ Dextrose 250 ml @ 166.667 mls/hr Q12H IVPB 06/29/18 06:00 07/04/18 05:59 06/29/18 05:47 Travis Montenegro MD Jun 29, 2018 14:00
[2018-06-29] MEDS: Hydromorphone 0.5mg/0.5ml inj IVP PRN (18:27)
[2018-06-30] VITALS: BP 121/75
[2018-06-30] MEDS: Hydromorphone 0.5mg/0.5ml inj IVP PRN (00:41)
[2018-06-30 04:00] VITALS: BP 116/58
[2018-06-30] MEDS: Piperacillin/Tazobactam 3.375 GM in D5W 110 ML IVPB SCH (04:00)
[2018-06-30] MEDS: Vancomycin 1250mg/D5W 250ml IVPB SCH (06:23)
[2018-06-30] MEDS ORDERED: Vancomycin 1gm/D5W 275ml IVPB SCH ×4 (07:00→14:00)
[2018-06-30 08:00] VITALS: BP 145/81
--- NOTE | 2018-06-30 08:34 | Diagnostic Imaging Report ---
INDICATION: Pain, intraoperative TECHNIQUE: Intraoperative imaging Fluoroscopy time: 4.5 seconds Total dose: 0.36899 mGym2 Total number of images: 2 COMPARISON: None FINDINGS: Intraoperative imaging demonstrates a needle projected posterior to what is presumably the L4-5 disc, subsequently surgical tool posterior to L5-S1 IMPRESSION: Intraoperative imaging, as described
[2018-06-30] MEDS: Docusate 100mg cap ORAL SCH (08:51)
[2018-06-30 12:00] VITALS: BP 132/81
--- NOTE | 2018-06-30 13:46 | Diagnostic Imaging Report ---
Indication: Cough Technique: One view of the chest Comparison: 03/24/2018 Findings: Granulomatous calcifications versus, more likely, prominent costochondral cartilages are seen in the bilateral upper lungs, right greater than left. The lungs and pleural spaces are otherwise clear. The heart size is normal. There is what appears to be a mid cervical disc prosthesis. No significant interim change Impression: No acute process
--- NOTE | 2018-06-30 15:25 | General Progress Note ---
Assessment/Plan Assessment/Plan lumbar radiculopathy L4/5 and L5/S1 stenosis Bilateral L4/5 and L5/S1 MLD post op fever PLAN urine culture and cxr negative d/w spine dc home drain out rx for percocet given impression, plan, and exam edited and reviewed in detail care discussed with RN Subjective Allergies: Coded Allergies: SULFA (SULFONAMIDE ANTIBIOTICS) (Verified Allergy, Unknown, 03/19/18) Subjective doing well nontoxic d/w Dr. Mckinley Objective Last 24 Hour Vital Signs Date Time Temp Pulse Resp B/P (MAP) Pulse Ox O2 Delivery O2 Flow Rate FiO2 06/30/18 12:00 99.0 75 18 132/81 (98) 98 06/30/18 09:00 Room Air Room Air 06/30/18 08:51 74 145/81 06/30/18 08:00 98.6 74 18 145/81 (102) 100 06/30/18 04:00 99.0 76 18 116/58 (77) 97 06/30/18 00:00 97.6 77 18 121/75 (90) 96 06/29/18 21:00 Room Air Room Air 06/29/18 20:30 73 137/91 (106) 06/29/18 20:00 98.7 74 18 162/86 (111) 98 06/29/18 16:00 98.7 76 20 122/79 (93) 99 Intake and Output 06/29/18 06/30/18 19:00 07:00 Intake Total 600 ml 615.00 ml Balance 600 ml 615.00 ml Intake Oral 600 ml 200 ml IV Total 415.00 ml # Voids 3 5 Laboratory Tests 06/30/18 05:00: Vancomycin Level Trough 11.5 Height (Feet): 5 Height (Inches): 8.00 Weight (Pounds): 260 Objective WDWN NAD clear breath sounds bilaterally without rhonchi or wheeze [id number] without MRG NABS nontender no HSM no CCE nonfocal Demarcus Aguilar MD Jun 30, 2018 15:25
[2018-06-30 16:00] VITALS: BP 131/74
[2018-06-30] MEDS ORDERED: NS 275ml ONE (17:59)
--- NOTE | 2018-07-02 14:06 | Discharge Summary ---
Discharge Summary Hospital Course Date of Admission Jun 26, 2018 at 08:45 Date of Discharge Jun 30, 2018 at 18:00 Admitting Diagnosis Lumbar spinal stenosis, L4-L5 and L5-S1 with symptomatic radiculopathy Reason for Hospitalization: elective surgery HPI Keila Willis is a 47 year old female who was admitted on Jun 26, 2018 at 08: 45 for back pain, lumbar spinal stenosis 47 years old female with significant spinal injury. Patient with myelopathy, which was addressed previously with an artificial disk replacement. The patient also had symptomatic lumbar radiculopathy . The patient failed reasonable conservative treatment. The patient preoperatively medically cleared and optimized for surgery. Consultations dr Aguilar -IM Procedures s/p 06/26/[address] Mckinley Hemilaminotomy, medial decompression, foraminotomy, bilateral lumbar L4-L5 and L5-S1. Hospital Course status post surgery course of recovery uneventful initially IV fluids neurovascular status closely monitored, stable incision clean ,dry and intact pain management was addressed ; pain was controlled initially with drain with close monitoring of output; drain discontinued hemodynamically stable ambulated with PT fall precautions maintained; safe for ambulation tolerated diet , IV fluids discontinued GI prophylaxis provided antiemetics were on board as needed voided freely bowel regimen instituted patient developed postoperative fever patient started on empiric antibiotics UA revealed no evidence of UTI CXR revealed no acute cardiopulmonary pathology ambulation was encouraged incentive spirometry was encouraged q1 hr x 10 while in the bed fever resolved , urine and blood culture negative, antibiotic discontinued patient was stable for discharge discharge instructions provided follow up with surgeon as outpatient FINAL DIAGNOSES 1. Lumbar spinal stenosis, L4-L5 and L5-S1 2.Symptomatic radiculopathy 3. s/p Hemilaminotomy, medial decompression, foraminotomy, bilateral lumbar L4- L5 and L5-S1 4. Obesity 5. DAFNE 6. History of previous gastric bypass 7. GERD 8.Postoperative fever -resolved Discharge Medications Continued Medications: Gabapentin* (Gabapentin*) 100 Mg Capsule 100 MG ORAL BEDTIME, CAP (This prescription has been renewed) Omeprazole (Omeprazole) 40 Mg Capsule.dr 40 MG ORAL DAILY, CAP (This prescription has been renewed) Discharge Condition Upon Discharge: stable Discharge Disposition Patient was discharged to Home (01) Discharge Instructions Discharge Instructions Special Instructions I have been assigned to complete a D/C Summary on this account. I was not involved in the patient management Rosaline Ortega NP Jul 02, 2018 14:06
== END 2018-06-30 18:00 | disposition home or self-care (01) | DRG 517 ==
LOC: SDSOVERFLO 08:45 → 3E 21:06
PROC: 0QB00ZZ Excision of Lumbar Vertebra, Open Approach (ICD-10-PCS; principal; 2018-06-26 12:30)
PROC: 01NB0ZZ Release Lumbar Nerve, Open Approach (ICD-10-PCS; principal; 2018-06-26 12:30)
DX: M48.061 Spinal stenosis, lumbar region without neurogenic claudication (principal); M48.07 Spinal stenosis, lumbosacral region; M54.16 Radiculopathy, lumbar region; M54.17 Radiculopathy, lumbosacral region; E66.9 Obesity, unspecified; Z68.39 Body mass index [BMI] 39.0-39.9, adult; Z98.84 Bariatric surgery status; K21.9 Gastro-esophageal reflux disease without esophagitis; G47.33 Obstructive sleep apnea (adult) (pediatric); R50.82 Postprocedural fever; R51 Headache
CPT/HCPCS: 36415; 71045; 72020; 76001; 80048; 80202; 81003; 81025; 83735; 84443; 85007; 85025; 86850; 86900; 86901; 87040; 87081; 87086; 94003; 94150; 94660; 94664; J2250; J2405; J2710; J8499